=== PATIENT | female | born 1970 | race Caucasian/White ===

== ENCOUNTER → 2020-02-20 | Outpatient (CLI) | payer OTHER | LOC: RAD 12:25 | PROVIDERS: ATTEND Nurse Practitioner | DX: Z12.31 Encounter for screening mammogram for malignant neoplasm of breast (principal) ==

== ENCOUNTER 2020-03-03 15:55 | Emergency (ER) | payer OTHER ==
[~2020-03-03] VITALS: Ht 172.7 cm; Wt 105.2 kg
[2020-03-03] MEDS ORDERED: SERTRALINE HCL50 MG PO (17:44)
[2020-03-03 19:01] VITALS: BP 128/77
== END 2020-03-03 19:02 | disposition home or self-care (01) ==
LOC: ER 15:55
DX: S40.021A Contusion of right upper arm, initial encounter (principal); S50.11XA Contusion of right forearm, initial encounter; Z79.899 Other long term (current) drug therapy; Z88.6 Allergy status to analgesic agent; X58.XXXA Exposure to other specified factors, initial encounter; Y93.89 Activity, other specified; Y92.89 Other specified places as the place of occurrence of the external cause; Y99.8 Other external cause status

== ENCOUNTER → 2020-09-09 | Outpatient (CLI) | payer OTHER ==
[~2020-09-09] MED LIST: SERTRALINE HCL50 MG PO
== END ==
LOC: CAT 11:04
PROVIDERS: ATTEND Otolaryngology
DX: R22.1 Localized swelling, mass and lump, neck (principal); J34.1 Cyst and mucocele of nose and nasal sinus

== ENCOUNTER → 2020-09-10 | Outpatient (CLI) | payer OTHER | LOC: RAD 11:27 | PROVIDERS: ATTEND Nurse Practitioner | DX: M50.323 Other cervical disc degeneration at C6-C7 level (principal); M43.12 Spondylolisthesis, cervical region; M25.78 Osteophyte, vertebrae ==